=== PATIENT | female | born 1965 | race Caucasian/White ===

== ENCOUNTER 2017-01-03 22:47 | Emergency (ER) | payer OTHER ==
[~2017-01-03] VITALS: Ht 177.8 cm; Wt 89.7 kg
[2017-01-03] MEDS ORDERED: ATEN25TA PO (23:02)
[2017-01-03] MEDS ORDERED: AMLO2.5T2 PO (23:02)
[2017-01-03 23:40] LABS: BLOOD UREA NITROGEN 25 mg/dL (7-18)
[2017-01-04 00:19] VITALS: BP 187/92
== END 2017-01-04 00:36 | disposition home or self-care (01) ==
LOC: ED 01-04 00:10
DX: I10 Essential (primary) hypertension (principal); Z00.8 Encounter for other general examination; F15.10 Other stimulant abuse, uncomplicated; F11.10 Opioid abuse, uncomplicated
CPT/HCPCS: 36415; 80048; 82040; 85025; 93005; 99285

== ENCOUNTER 2017-08-24 18:30 | Inpatient (IN) | payer MEDICAID ==
[~2017-08-24] VITALS: Ht 177.8 cm; Wt 104.3 kg
[~2017-08-24 18:30] MED LIST: AMLO2.5T2 PO; ATEN25TA PO
[2017-08-24] MEDS ORDERED: ALBUTEROL/IPRATROPIUM 2.5MG/0.5MG, 3 ML NPPB ONE (20:00)
[2017-08-24] MEDS ORDERED: LORazepam 1MG TABLET PO ONE (20:00)
[2017-08-24] MEDS ORDERED: LORazepam 1MG TABLET ONE (20:13)
[2017-08-24 20:31] LABS: ALBUMIN 3.3 g/dL (3.4-5.0); ANION GAP 7 mmol/L (5-15); CHLORIDE 108 mmol/L (98-107); CREATININE 0.85 mg/dL (0.55-1.02)
[2017-08-24 21:40] LABS: BASOPHILS # (AUTO) 0.04 x10^3/uL (0-0.1); BASOPHILS % (AUTO) 0 % (0-1); EOSINOPHILS # (AUTO) 0.03 x10^3/uL (0-0.4); EOSINOPHILS % (AUTO) 0 % (1-7); LYMPHOCYTES # (AUTO) 2.54 x10^3/uL (1-3.4); LYMPHOCYTES % (AUTO) 17 % (22-44); MD NO; MEAN CORPUSCULAR HEMOGLOBIN 22.3 pg (27.0-34.8); MEAN CORPUSCULAR HGB CONC 31.5 g/dL (32.4-35.8); MEAN CORPUSCULAR VOLUME 70.8 fL (80-100); MEAN PLATELET VOLUME 9.9 fL (7.4-10.4); MONOCYTES # (AUTO) 1.02 x10^3/uL (0.2-0.8); MONOCYTES % (AUTO) 7 % (2-9); NEUTROPHILS # (AUTO) 11.66 x10^3/uL (1.8-6.8); NEUTROPHILS % (AUTO) 76 % (42-75); PLATELET COUNT 200 x10^3/uL (130-400)
[2017-08-24] MEDS ORDERED: ALBUTEROL/IPRATROPIUM 2.5MG/0.5MG, 3 ML ONE (22:53)
[2017-08-24] MEDS ORDERED: LABETALOL 5MG/ML, 20ML IVPush STA (23:56)
[2017-08-24] MEDS ORDERED: SODIUM CHLORIDE 0.9% 1,000 ML IV SCH (23:56)
[2017-08-24] MEDS ORDERED: LABETALOL 5MG/ML, 20ML ONE (23:57)
[2017-08-25] MEDS ORDERED: ONDANSETRON 2MG/ML, 2ML IVPush PRN
[2017-08-25] MEDS ORDERED: GUAIFENESIN/DM 200-20MG, 10ML UDC PO PRN
[2017-08-25] MEDS ORDERED: LABETALOL 5MG/ML, 20ML IVPush PRN
[2017-08-25] MEDS ORDERED: ACETAMINOPHEN 325 MG TABLET PO PRN
[2017-08-25] MEDS ORDERED: hydrALAzine 20 MG/ML, 1ML IVPush PRN
[2017-08-25 00:32] LABS: TROPONIN I 0.052 ng/mL (0.000-0.045)
[2017-08-25] MEDS ORDERED: OMNIPAQUE 350 MG/ML, 100ML BOTTLE ONE (01:46)
[2017-08-25 02:52] VITALS: BP 191/100
[2017-08-25 04:37] LABS: BASOPHILS # (AUTO) 0.04 x10^3/uL (0-0.1); BASOPHILS % (AUTO) 0 % (0-1); EOSINOPHILS # (AUTO) 0.11 x10^3/uL (0-0.4); EOSINOPHILS % (AUTO) 1 % (1-7); LYMPHOCYTES # (AUTO) 2.64 x10^3/uL (1-3.4); LYMPHOCYTES % (AUTO) 21 % (22-44); MD NO; MEAN CORPUSCULAR HEMOGLOBIN 22.6 pg (27.0-34.8); MEAN CORPUSCULAR HGB CONC 31.8 g/dL (32.4-35.8); MONOCYTES # (AUTO) 0.59 x10^3/uL (0.2-0.8); MONOCYTES % (AUTO) 5 % (2-9); NEUTROPHILS # (AUTO) 8.95 x10^3/uL (1.8-6.8); NEUTROPHILS % (AUTO) 73 % (42-75); PLATELET COUNT 201 x10^3/uL (130-400); RED BLOOD COUNT 5.04 x10^6/uL (3.82-5.3)
[2017-08-25 04:50] LABS: TROPONIN I 0.069 ng/mL (0.000-0.045)
[2017-08-25 04:56] LABS: ALBUMIN 3.1 g/dL (3.4-5.0); ANION GAP 7 mmol/L (5-15); CALCIUM 8.6 mg/dL (8.5-10.1); CHLORIDE 109 mmol/L (98-107)
[2017-08-25 05:02] LABS: ALANINE AMINOTRANSFERASE 26 U/L (12-78); ALKALINE PHOSPHATASE 96 U/L (45-117); BILIRUBIN,TOTAL 0.3 mg/dL (0.2-1.0); CHOL/HDL RATIO 2.6; CHOLESTEROL, TOTAL 134 mg/dL (140-239); CREATININE 0.77 mg/dL (0.55-1.02); HDL CHOL % 38 % (28-40); HDL CHOLESTEROL (DIRECT) 51 mg/dL (40-60); LDL CHOLESTEROL,CALCULATED 65 mg/dL (54-169); LDL/HDL RATIO 1.3 (0.5-3.0); TRIGLYCERIDES 89 mg/dL (50-200); VLDL CHOLESTEROL 18 mg/dL (0-25)
[2017-08-25 05:54] VITALS: BP 157/80
[2017-08-25] MEDS ORDERED: ASPIRIN 325 MG TABLET EC PO SCH (06:00)
[2017-08-25] MEDS ORDERED: LORazepam 2 MG/ML, 1ML IVPush PRN (09:30)
[2017-08-25] MEDS: ATENOLOL 25 MG TABLET PO SCH (10:00)
[2017-08-25] MEDS: AMLODIPINE 5 MG TABLET PO SCH (10:00)
[2017-08-25] MEDS ORDERED: ALBUTEROL/IPRATROPIUM 2.5MG/0.5MG, 3 ML ONE (10:35)
[2017-08-25] MEDS: ALBUTEROL/IPRATROPIUM 2.5MG/0.5MG, 3 ML NPPB SCH ×3 (10:57→20:06)
[2017-08-25 19:25] LABS: AMPHETAMINE SCREEN, URINE Positive (Negative); BARBITURATE SCREEN, URINE Negative (Negative); BENZODIAZEPINE SCREEN, URINE Negative (Negative); CANNABINOID SCREEN, URINE Positive (Negative); COCAINE SCREEN, URINE Negative (Negative); METHADONE SCREEN, URINE Negative (Negative); OPIATE SCREEN, URINE Negative (Negative)
[2017-08-25] MEDS: ENOXAPARIN 40 MG/0.4 ML SQ SCH (20:05)
[2017-08-26 04:01] VITALS: BP 158/72
[2017-08-26 04:38] LABS: BASOPHILS # (AUTO) 0.05 x10^3/uL (0-0.1); BASOPHILS % (AUTO) 0 % (0-1); EOSINOPHILS # (AUTO) 0.15 x10^3/uL (0-0.4); EOSINOPHILS % (AUTO) 1 % (1-7); LYMPHOCYTES # (AUTO) 2.36 x10^3/uL (1-3.4); LYMPHOCYTES % (AUTO) 19 % (22-44); MD NO; MEAN CORPUSCULAR HGB CONC 30.8 g/dL (32.4-35.8); MEAN CORPUSCULAR VOLUME 71.3 fL (80-100); MEAN PLATELET VOLUME 10.4 fL (7.4-10.4); MONOCYTES # (AUTO) 0.59 x10^3/uL (0.2-0.8); MONOCYTES % (AUTO) 5 % (2-9); NEUTROPHILS # (AUTO) 9.47 x10^3/uL (1.8-6.8); NEUTROPHILS % (AUTO) 75 % (42-75); PLATELET COUNT 195 x10^3/uL (130-400); RED BLOOD COUNT 5.23 x10^6/uL (3.82-5.3); RED CELL DISTRIBUTION WIDTH 18.3 % (9.6-15.2)
[2017-08-26 04:50] LABS: ALBUMIN 3.1 g/dL (3.4-5.0); ANION GAP 6 mmol/L (5-15); CALCIUM 8.5 mg/dL (8.5-10.1); CHLORIDE 107 mmol/L (98-107); CREATININE 0.76 mg/dL (0.55-1.02)
[2017-08-26 04:53] LABS: TROPONIN I 0.046 ng/mL (0.000-0.045)
[2017-08-26 04:54] LABS: ALANINE AMINOTRANSFERASE 23 U/L (12-78); ALKALINE PHOSPHATASE 90 U/L (45-117); BILIRUBIN,TOTAL 0.3 mg/dL (0.2-1.0); TOTAL PROTEIN 6.9 g/dL (6.4-8.2)
[2017-08-26] MEDS ORDERED: ASPIRIN 325 MG TABLET EC PO SCH (06:00)
[2017-08-26] MEDS: ASPIRIN 81 MG TABLET EC PO SCH (06:29)
[2017-08-26] MEDS: ALBUTEROL/IPRATROPIUM 2.5MG/0.5MG, 3 ML NPPB SCH ×4 (07:00→20:20)
[2017-08-26] MEDS: AMLODIPINE 5 MG TABLET PO SCH (08:08)
[2017-08-26] MEDS: ATENOLOL 25 MG TABLET PO SCH (08:08)
[2017-08-26] MEDS ORDERED: LABETALOL 5MG/ML, 20ML IVPush PRN (10:00)
[2017-08-26] MEDS ORDERED: hydrALAzine 20 MG/ML, 1ML IVPush PRN ×2 (10:00→16:00)
[2017-08-26] MEDS: LISINOPRIL 10 MG TABLET PO SCH ×2 (10:34→20:03)
[2017-08-26] MEDS: DILTIAZEM 120 MG CAP.ER.12H PO SCH ×2 (10:34→20:04)
[2017-08-26] MEDS ORDERED: LORazepam 2 MG/ML, 1ML IVPush PRN (16:00)
[2017-08-26 17:16] VITALS: BP 170/80
[2017-08-26 19:58] VITALS: BP 150/80
[2017-08-26 20:00] VITALS: BP 152/75
[2017-08-26] MEDS: ENOXAPARIN 40 MG/0.4 ML SQ SCH (20:03)
[2017-08-27 01:26] VITALS: BP 155/77
[2017-08-27] MEDS: ASPIRIN 81 MG TABLET EC PO SCH (06:32)
[2017-08-27] MEDS: ALBUTEROL/IPRATROPIUM 2.5MG/0.5MG, 3 ML NPPB SCH (06:51)
[2017-08-27] MEDS ORDERED: ALBUTEROL/IPRATROPIUM 2.5MG/0.5MG, 3 ML NPPB PRN (07:00)
[2017-08-27 07:37] VITALS: BP 158/67
[2017-08-27] MEDS: LISINOPRIL 10 MG TABLET PO SCH (09:05)
[2017-08-27] MEDS: DILTIAZEM 120 MG CAP.ER.12H PO SCH (09:05)
[2017-08-27 15:28] VITALS: BP 175/77
[2017-08-27] MEDS ORDERED: LISINOPRIL 20 MG TABLET PO SCH (21:00)
[2017-08-27] MEDS ORDERED: DILTIAZEM 120 MG CAP.ER.12H PO SCH (21:00)
== END 2017-08-27 17:31 | disposition left against medical advice (07) | DRG 64 ==
LOC: ED 22:07 → OBSVTOIN 23:09 → EDIP 23:09 → CCU 08-25 01:52 → 4EST 08-26 17:20
PROVIDERS: ADMIT Hospitalist; ATTEND Hospitalist
DX: I63.9 Cerebral infarction, unspecified (principal); I71.01 Dissection of thoracic aorta; J44.1 Chronic obstructive pulmonary disease with (acute) exacerbation; D50.9 Iron deficiency anemia, unspecified; D72.829 Elevated white blood cell count, unspecified; F15.90 Other stimulant use, unspecified, uncomplicated; F17.210 Nicotine dependence, cigarettes, uncomplicated; F41.0 Panic disorder [episodic paroxysmal anxiety]; Z53.21 Procedure and treatment not carried out due to patient leaving prior to being seen by health care provider; G24.01 Drug induced subacute dyskinesia; R47.81 Slurred speech; I10 Essential (primary) hypertension; Z91.19 Patient's noncompliance with other medical treatment and regimen; R00.0 Tachycardia, unspecified; R47.1 Dysarthria and anarthria
CPT/HCPCS: 36415; 70450; 70496; 70498; 70551; 80048; 80053; 80061; 80307; 82040; 83735; 84100; 84484; 85025; 87081; 93005; 93306; 94640; 96374; J1650; J7620; Q9967; 92523-GN; J2060; J7030; J7050

== ENCOUNTER 2018-09-11 02:07 | Inpatient (IN) | payer MEDICAID ==
[~2018-09-11] VITALS: Ht 177.8 cm; Wt 108.8 kg
[2018-09-11] MEDS ORDERED: AMPICILLIN/SULBACTAM 3 GM in SODIUM CHLORIDE 0.9% 100 ML IV ONE (03:00)
[2018-09-11] MEDS ORDERED: KETOROLAC 30 MG/1 ML IVPush ONE (03:00)
[2018-09-11] MEDS ORDERED: VANCOMYCIN PER PHARMACY MC PRN ×2 (03:00→05:00)
[2018-09-11] MEDS ORDERED: VANCOMYCIN 2,000 MG in SODIUM CHLORIDE 0.9% 500 ML IV ONE (03:00)
[2018-09-11] MEDS ORDERED: SODIUM CHLORIDE 0.9% 1,000ML IVBOLUS ONE ×2 (03:00)
[2018-09-11 03:41] LABS: ALANINE AMINOTRANSFERASE 49 U/L (12-78); ALBUMIN 3.3 g/dL (3.4-5.0); ANION GAP 6 mmol/L (5-15); CALCIUM 8.8 mg/dL (8.5-10.1); CHLORIDE 102 mmol/L (98-107); CREATININE 1.12 mg/dL (0.55-1.02)
[2018-09-11 03:44] LABS: ALKALINE PHOSPHATASE 106 U/L (45-117); BILIRUBIN,TOTAL 0.5 mg/dL (0.2-1.0); TOTAL PROTEIN 7.8 g/dL (6.4-8.2)
--- NOTE | 2018-09-11 03:56 | NUR ---
PT REPORTS SHE AWOKE THIS AM WITH RED SWOLLEN AND PAINFUL LEFT LEG. per triage note iv was started by using us ( tania borjas ) iv abx with 2 liters of saline was given per sepsis
[2018-09-11] MEDS ORDERED: LISI-167 PO (04:05)
[2018-09-11 04:13] LABS: BASOPHILS % (AUTO) 0 % (0-1); EOSINOPHILS % (AUTO) 0 % (1-7); LYMPHOCYTES # (AUTO) 1.13 x10^3/uL (1-3.4); LYMPHOCYTES % (AUTO) 8 % (22-44); MD NO; MEAN CORPUSCULAR HGB CONC 33.3 g/dL (32.4-35.8); MEAN CORPUSCULAR VOLUME 84.3 fL (80-100); MEAN PLATELET VOLUME 11.3 fL (7.4-10.4); MONOCYTES # (AUTO) 0.44 x10^3/uL (0.2-0.8); MONOCYTES % (AUTO) 3 % (2-9); NEUTROPHILS # (AUTO) 12.94 x10^3/uL (1.8-6.8); NEUTROPHILS % (AUTO) 89 % (42-75); PLATELET COUNT 153 x10^3/uL (130-400); RED BLOOD COUNT 4.98 x10^6/uL (3.82-5.3); RED CELL DISTRIBUTION WIDTH 13.8 % (9.6-15.2)
[2018-09-11] MEDS ORDERED: MORPHINE SULFATE 4 MG/ML, 1ML IVPush PRN (04:30)
[2018-09-11] MEDS ORDERED: SODIUM CHLORIDE 0.9% 1,000 ML IV SCH (04:53)
[2018-09-11] MEDS ORDERED: ONDANSETRON ODT 4 MG PO PRN (05:00)
[2018-09-11] MEDS ORDERED: hydrALAzine 20 MG/ML, 1ML IVPush PRN (05:00)
[2018-09-11] MEDS ORDERED: morphine SULFATE 10 MG/ML, 1ML IVPush PRN (05:00)
[2018-09-11] MEDS ORDERED: PROMETHAZINE 25 MG/ML, 1ML IM PRN (05:00)
[2018-09-11] MEDS ORDERED: KETOROLAC 30 MG/1 ML IV PRN (05:00)
[2018-09-11] MEDS ORDERED: ONDANSETRON 2MG/ML, 2ML IVPush PRN (05:00)
[2018-09-11] MEDS ORDERED: OXYcodone IR 5MG TABLET PO PRN (05:00)
[2018-09-11] MEDS ORDERED: ACETAMINOPHEN 325 MG TABLET PO PRN (05:00)
[2018-09-11] MEDS ORDERED: POLYETHYLENE GLYCOL 17 GM PACKET PO PRN (05:00)
[2018-09-11] MEDS ORDERED: BISACODYL 10 MG SUPP PR PRN (05:00)
[2018-09-11 05:29] LABS: FREE T4 (FREE THYROXINE) 1.22 ng/dL (0.76-1.46); HEMOGLOBIN A1C 5.6 % (4.2-6.3)
[2018-09-11] MEDS ORDERED: PHARMACOKINETIC MONITORING MC PRN (05:30)
[2018-09-11 05:34] LABS: C-REACTIVE PROTEIN, QUANT > 19.00 mg/dL (0.02-0.49)
--- NOTE | 2018-09-11 05:46 | NUR ---
PT RESTING ON GURNEY, NO NEEDS EXPRESSED AT THIS TIME.
[2018-09-11] MEDS ORDERED: KETOROLAC 30 MG/1 ML ONE (05:49)
[2018-09-11] MEDS ORDERED: NICOTINE 7 MG/24 HR PATCH.TD24 ONE (05:49)
[2018-09-11] MEDS ORDERED: HEPARIN 5,000 UNITS/ML, 1ML ONE (05:49)
[2018-09-11] MEDS: HEPARIN 5,000 UNITS/ML, 1ML SQ SCH ×3 (05:56→22:03)
[2018-09-11] MEDS: NICOTINE 7 MG/24 HR PATCH.TD24 TD SCH (05:57)
--- NOTE | 2018-09-11 07:05 | NUR ---
I AM ASSUMING CARE OF THIS PT FROM HARDIK (AINSLEY) AT THIS TIME. SBAR REPORT WAS EXCHANGED AT THE BEDSIDE.
[2018-09-11] MEDS ORDERED: CARVEDILOL 3.125 MG TABLET ONE (07:45)
[2018-09-11] MEDS ORDERED: ASPIRIN 81 MG TABLET CHEW ONE (07:46)
[2018-09-11] MEDS: ASPIRIN 81 MG TABLET EC PO SCH (07:47)
[2018-09-11] MEDS: CARVEDILOL 6.25 MG TABLET PO SCH ×2 (07:48→18:29)
--- NOTE | 2018-09-11 08:20 | NUR ---
PT ASKED TO USE RESTROOM. WHILE DISCONNECTING FROM MONITORS, SHE WAS INCONTINENT OF URINE IN BED. SHE STATED THAT SHE COULDN'T HOLD IT ANY LONGER. CLEAN LINENS AND HYGEINE PROVIDED. UNABLE TO OBTAIN URINE FOR ANALYSIS AT THIS TIME. I WILL CONTINUE TO MONITOR AND TREAT ORDERED, WELL PRN. MEALTRAY PROVIDED AND APPRECIATED.
--- NOTE | 2018-09-11 08:45 | NUR ---
HOSPITAL BED REQUESTED FOR COMFORT WHILE AWAITING A ROOM ASSIGNMENT FOR ADMISSION.
[2018-09-11] MEDS ORDERED: SENNA/DOCUSATE TABLET ONE (08:51)
[2018-09-11] MEDS ORDERED: LISINOPRIL 10 MG TABLET ONE (08:51)
[2018-09-11] MEDS ORDERED: OXYcodone IR 5MG TABLET ONE (08:52)
[2018-09-11] MEDS: OXYcodone IR 5MG TABLET PO PRN (08:54)
[2018-09-11] MEDS: SENNA/DOCUSATE TABLET PO SCH (08:55)
[2018-09-11] MEDS: LISINOPRIL 10 MG TABLET PO SCH (08:55)
[2018-09-11 09:12] LABS: HCT (SEDRATE) 41.9 % (34.6-47.8)
[2018-09-11] MEDS: AMPICILLIN/SULBACTAM 3 GM in SODIUM CHLORIDE 0.9% 100 ML IV SCH ×3 (10:40→22:03)
--- NOTE | 2018-09-11 10:51 | NUR ---
hospital bed provided for comfort. no ua at this time, but pt is aware of the necesity of such.
--- NOTE | 2018-09-11 12:51 | NUR ---
pt sleeping sonorously on a hospital bed. no acute changes noted at this time. vs are stable, and wdl. in the meantime i will continue to monitor and treat as ordered, as well as prn while awaiting a room assignment for admission.
--- NOTE | 2018-09-11 13:58 | NUR ---
pt still sleeping sonorously on a hospital bed. no acute changes noted at this time. vs are stable, and wdl. in the meantime i will continue to monitor and treat as ordered, as well as prn while awaiting a room assignment for admission.
[2018-09-11 15:00] VITALS: BP 127/57
--- NOTE | 2018-09-11 15:06 | NUR ---
VERBAL SBAR REPORT WAS EXCHANGED Diana CASPER (AINSLEY) ON THE FLOOR FOR ADMISSION. WE WILL BEGIN TO PREPARE FOR TRANSPORT AT THIS TIME.
[2018-09-11 19:50] VITALS: BP 109/52
[2018-09-11] MEDS ORDERED: ATORVASTATIN 40 MG TABLET PO SCH (21:00)
[2018-09-11] MEDS ORDERED: VANCOMYCIN 2,000 MG in SODIUM CHLORIDE 0.9% 500 ML IV SCH (23:00)
[2018-09-12 01:56] VITALS: BP 145/71
[2018-09-12] MEDS: AMPICILLIN/SULBACTAM 3 GM in SODIUM CHLORIDE 0.9% 100 ML IV SCH ×2 (04:18→09:48)
[2018-09-12] MEDS: HEPARIN 5,000 UNITS/ML, 1ML SQ SCH (04:18)
[2018-09-12] MEDS: NICOTINE 7 MG/24 HR PATCH.TD24 TD SCH (04:19)
[2018-09-12] MEDS: CARVEDILOL 6.25 MG TABLET PO SCH (05:34)
[2018-09-12] MEDS: ASPIRIN 81 MG TABLET EC PO SCH (05:34)
[2018-09-12 05:37] LABS: MEAN CORPUSCULAR HEMOGLOBIN 28.1 pg (27.0-34.8); MEAN CORPUSCULAR VOLUME 85.2 fL (80-100); MEAN PLATELET VOLUME 10.5 fL (7.4-10.4); PLATELET COUNT 150 x10^3/uL (130-400); RED BLOOD COUNT 3.93 x10^6/uL (3.82-5.3); RED CELL DISTRIBUTION WIDTH 14.5 % (9.6-15.2)
[2018-09-12 05:38] LABS: ALBUMIN 2.4 g/dL (3.4-5.0); ANION GAP 6 mmol/L (5-15); CHLORIDE 109 mmol/L (98-107)
[2018-09-12 05:42] LABS: ALANINE AMINOTRANSFERASE 31 U/L (12-78); ALKALINE PHOSPHATASE 74 U/L (45-117); BILIRUBIN,TOTAL 0.3 mg/dL (0.2-1.0); CHOL/HDL RATIO 5.6; CHOLESTEROL, TOTAL 106 mg/dL (140-239); CREATININE 0.86 mg/dL (0.55-1.02); HDL CHOL % 18 % (28-40); HDL CHOLESTEROL (DIRECT) 19 mg/dL (40-60); LDL CHOLESTEROL,CALCULATED 54 mg/dL (54-169); LDL/HDL RATIO 2.8 (0.5-3.0); TRIGLYCERIDES 167 mg/dL (50-200); VLDL CHOLESTEROL 33 mg/dL (0-25)
[2018-09-12 06:05] LABS: BASOPHILS # (AUTO) 0.01 x10^3/uL (0-0.1); BASOPHILS % (AUTO) 0 % (0-1); EOSINOPHILS # (AUTO) 0.03 x10^3/uL (0-0.4); EOSINOPHILS % (AUTO) 1 % (1-7); LYMPHOCYTES # (AUTO) 1.15 x10^3/uL (1-3.4); LYMPHOCYTES % (AUTO) 18 % (22-44); MD SCAN; MONOCYTES % (AUTO) 8 % (2-9); NEUTROPHILS # (AUTO) 4.84 x10^3/uL (1.8-6.8); NEUTROPHILS % (AUTO) 74 % (42-75)
[2018-09-12 06:49] VITALS: BP 112/50
[2018-09-12] MEDS ORDERED: ACETAMINOPHEN 325 MG TABLET PO PRN (08:00)
[2018-09-12] MEDS: SENNA/DOCUSATE TABLET PO SCH (09:49)
[2018-09-12] MEDS: LISINOPRIL 10 MG TABLET PO SCH (09:49)
[2018-09-12] MEDS ORDERED: KETOROLAC 30 MG/1 ML IV PRN (11:00)
[2018-09-12] MEDS: OXYcodone IR 5MG TABLET PO PRN (12:23)
[2018-09-12 13:01] VITALS: BP 144/66
== END 2018-09-12 13:33 | disposition left against medical advice (07) | DRG 871 ==
LOC: ED 04:20 → EDIP 04:21 → ED 06:55 → 4NOR 15:54
PROVIDERS: ADMIT Internal Medicine; ATTEND Internal Medicine
DX: A41.9 Sepsis, unspecified organism (principal); N17.0 Acute kidney failure with tubular necrosis; E87.1 Hypo-osmolality and hyponatremia; L03.116 Cellulitis of left lower limb; E44.0 Moderate protein-calorie malnutrition; E66.9 Obesity, unspecified; F15.10 Other stimulant abuse, uncomplicated; I10 Essential (primary) hypertension; I49.3 Ventricular premature depolarization; I71.4 Abdominal aortic aneurysm, without rupture; R65.20 Severe sepsis without septic shock; F17.210 Nicotine dependence, cigarettes, uncomplicated; Z91.14 Patient's other noncompliance with medication regimen; Z53.21 Procedure and treatment not carried out due to patient leaving prior to being seen by health care provider; Z86.73 Personal history of transient ischemic attack (TIA), and cerebral infarction without residual deficits; Z71.51 Drug abuse counseling and surveillance of drug abuser; Z68.34 Body mass index [BMI] 34.0-34.9, adult
CPT/HCPCS: 36415; 80053; 80061; 83036; 83605; 83735; 84145; 84439; 85025; 85651; 86140; 87040; 90656; 93005; G0378; J0295; J1644; J1885; J3370; J7030; J7040

== ENCOUNTER 2018-09-13 16:41 | Observation (INO) | payer MEDICAID ==
[~2018-09-13] VITALS: Ht 177.8 cm; Wt 101.3 kg
[~2018-09-13 16:41] MED LIST changes: +LISI-167 PO
--- NOTE | 2018-09-13 17:00 | NUR ---
PRESENTS WITH CONTINUED RLE CELLULITIS, +4 EDEMA/QUITE REDDNED/HOT TO TOUCH, AFEBRILE, VSS. HAS HARLAN TO [facility]/THIS FACILITY MULTIPLE TIMES IN THE LAST WEEK-LEAFT AMA FROM EACH FACILITY. PALPABLE PULSE
[2018-09-13 17:45] LABS: ANION GAP 7 mmol/L (5-15); CALCIUM 8.5 mg/dL (8.5-10.1); CHLORIDE 109 mmol/L (98-107); CREATININE 0.76 mg/dL (0.55-1.02)
[2018-09-13] MEDS ORDERED: AMPICILLIN/SULBACTAM 3 GM in SODIUM CHLORIDE 0.9% 100 ML IV ONE (18:00)
[2018-09-13] MEDS ORDERED: VANCOMYCIN 2,000 MG in SODIUM CHLORIDE 0.9% 500 ML IV ONE (18:00)
[2018-09-13] MEDS ORDERED: SODIUM CHLORIDE FLUSH 10ML SYR IVF ONE (18:00)
[2018-09-13] MEDS ORDERED: VANCOMYCIN PER PHARMACY MC ONE (18:00)
--- NOTE | 2018-09-13 18:06 | NUR ---
Architectural Technician & lab at bedside attempting to obtain blood with patient from [phone]. Architectural Technician able to obtain right forearm piv #20 with US
--- NOTE | 2018-09-13 18:20 | NUR ---
UNASYN STARTED AFTER BLOOD CULTURES OBTAINED X 2
[2018-09-13 18:30] LABS: MEAN CORPUSCULAR HEMOGLOBIN 28.1 pg (27.0-34.8); MEAN CORPUSCULAR HGB CONC 33.3 g/dL (32.4-35.8); MEAN CORPUSCULAR VOLUME 84.6 fL (80-100); MEAN PLATELET VOLUME 11.2 fL (7.4-10.4); PLATELET COUNT 219 x10^3/uL (130-400); RED BLOOD COUNT 4.64 x10^6/uL (3.82-5.3); RED CELL DISTRIBUTION WIDTH 14.4 % (9.6-15.2)
--- NOTE | 2018-09-13 18:49 | NUR ---
RESTING COMFORTABLY IN BED, CALL PRETTY IN HAND/SIDE RAILS UP. REPORTS CONTINUED MILD PAIN TO RLE (08/26) PROVIDER AWARE. VSS. UNASYN DONE, VANC STARTED. UPDATED ON ESTIMATED POC (ENCOURAGED TO STAY FOR FULL TC THIS ADMISSION). gIVEN ADDITIONAL PILLOW AND BLANKET SHE REMAINS AFEBRILE
[2018-09-13 18:55] LABS: BASOPHILS # (AUTO) 0.01 x10^3/uL (0-0.1); BASOPHILS % (AUTO) 0 % (0-1); EOSINOPHILS # (AUTO) 0.04 x10^3/uL (0-0.4); EOSINOPHILS % (AUTO) 1 % (1-7); LYMPHOCYTES # (AUTO) 1.28 x10^3/uL (1-3.4); LYMPHOCYTES % (AUTO) 17 % (22-44); MD SCAN; MONOCYTES # (AUTO) 0.43 x10^3/uL (0.2-0.8); MONOCYTES % (AUTO) 6 % (2-9); NEUTROPHILS # (AUTO) 5.87 x10^3/uL (1.8-6.8); NEUTROPHILS % (AUTO) 77 % (42-75)
[2018-09-13 20:01] VITALS: BP 155/81
[2018-09-13] MEDS ORDERED: SODIUM CHLORIDE 0.9% 1,000 ML IV SCH (20:26)
[2018-09-13] MEDS ORDERED: ACETAMINOPHEN 325 MG TABLET PO PRN (20:30)
[2018-09-13] MEDS ORDERED: KETOROLAC 30 MG/1 ML IV PRN (20:30)
[2018-09-13] MEDS ORDERED: VANCOMYCIN PER PHARMACY MC PRN (20:30)
[2018-09-13] MEDS ORDERED: POLYETHYLENE GLYCOL 17 GM PACKET PO PRN (20:30)
[2018-09-13] MEDS ORDERED: NICOTINE 7 MG/24 HR PATCH.TD24 TD SCH (20:30)
[2018-09-13] MEDS ORDERED: ENOXAPARIN 40 MG/0.4 ML SQ SCH (20:30)
[2018-09-13] MEDS ORDERED: ENALAPRILAT 1.25 MG/ML, 2ML IVPush PRN (20:30)
[2018-09-13] MEDS ORDERED: AMPICILLIN/SULBACTAM 3 GM in SODIUM CHLORIDE 0.9% 100 ML IV SCH (20:30)
[2018-09-13] MEDS ORDERED: ONDANSETRON 2MG/ML, 2ML IVPush PRN (20:30)
[2018-09-13] MEDS ORDERED: PHARMACOKINETIC CONSULTATION MC ONE (21:00)
[2018-09-13] MEDS ORDERED: PHARMACOKINETIC MONITORING MC PRN (21:00)
[2018-09-14] MEDS ORDERED: AMPICILLIN/SULBACTAM 3 GM in SODIUM CHLORIDE 0.9% 100 ML IV SCH (00:15)
[2018-09-14] MEDS ORDERED: SENNA/DOCUSATE TABLET PO SCH (09:00)
[2018-09-14] MEDS ORDERED: VANCOMYCIN 2,000 MG in SODIUM CHLORIDE 0.9% 500 ML IV SCH (18:00)
== END 2018-09-13 21:27 | disposition left against medical advice (07) ==
LOC: ED 18:28 → INTOOBSV 18:37 → EDIP 18:37 → 3NE 19:41
PROVIDERS: ADMIT Family Medicine; ATTEND Family Medicine
DX: L03.116 Cellulitis of left lower limb (principal); I10 Essential (primary) hypertension; F15.90 Other stimulant use, unspecified, uncomplicated; F17.210 Nicotine dependence, cigarettes, uncomplicated; E44.0 Moderate protein-calorie malnutrition; E66.9 Obesity, unspecified; Z53.21 Procedure and treatment not carried out due to patient leaving prior to being seen by health care provider; Z91.14 Patient's other noncompliance with medication regimen; Z68.32 Body mass index [BMI] 32.0-32.9, adult
CPT/HCPCS: 36415; 80048; 83605; 84145; 85025; 87040; 96365; 96366; 96367; 99284; G0378; J0295; J3370; J7040; 96375; 99285

== ENCOUNTER 2020-02-29 09:35 | Emergency (ER) | payer MEDICAID ==
[~2020-02-29] VITALS: Ht 177.8 cm; Wt 107.0 kg
--- NOTE | 2020-02-29 09:51 | NUR ---
TASK RN: CONTACT WITH PT, 54 YR OLD FEMALE HERE WITH C/O "I'M BLEEDING ALOT, LIKE ALOT ALOT. IT CLOTTING LIKE BRIGHT RED BLOOD CLOTS. I GET MY PERIOD EVERY 7 MONTHS AND BLEED ALOT, BUT THIS IS ALOT, ALOT. THIS IS TOO MUCH, I'M SLEEPING ALOT, I'M TIRED"
[2020-02-29] MEDS ORDERED: LOVA20TA2 PO (09:59)
[2020-02-29] MEDS ORDERED: SERT100T32 PO (09:59)
[2020-02-29] MEDS ORDERED: AMLO-150 PO (09:59)
[2020-02-29] MEDS ORDERED: ASPI81TA45 PO (10:01)
[2020-02-29] MEDS ORDERED: ALBU18HF INH (10:01)
[2020-02-29] MEDS ORDERED: SODIUM CHLORIDE 0.9% 1,000ML IVBOLUS ONE (10:30)
[2020-02-29] MEDS ORDERED: SODIUM CHLORIDE FLUSH 10ML SYR IVF ONE (10:30)
--- NOTE | 2020-02-29 10:33 | NUR ---
PT LAYING ON GURNEY, NO ACUTE DISTRESS NOTED. PT REQUESTING SOCKS. PROVIDED TO PT. PT FRIEND AT BEDSIDE. AWAITING ORDERES.
--- NOTE | 2020-02-29 10:52 | NUR ---
RECEIVED REPORT FROM NEETA SCHMITZ. ASSUMING CARE AT THIS TIME.
--- NOTE | 2020-02-29 10:52 | NUR ---
REPORT TO SHELBI SCHMITZ
[2020-02-29 11:05] LABS: BASOPHILS # (AUTO) 0.03 x10^3/uL (0-0.1); BASOPHILS % (AUTO) 0 % (0-1); EOSINOPHILS # (AUTO) 0.17 x10^3/uL (0-0.4); EOSINOPHILS % (AUTO) 2 % (1-7); LYMPHOCYTES # (AUTO) 1.72 x10^3/uL (1-3.4); LYMPHOCYTES % (AUTO) 20 % (22-44); MD NO; MEAN CORPUSCULAR HEMOGLOBIN 29.3 pg (27.0-34.8); MEAN CORPUSCULAR HGB CONC 32.6 g/dL (32.4-35.8); MEAN CORPUSCULAR VOLUME 89.8 fL (80-100); MEAN PLATELET VOLUME 9.6 fL (7.4-10.4); MONOCYTES # (AUTO) 0.38 x10^3/uL (0.2-0.8); MONOCYTES % (AUTO) 5 % (2-9); NEUTROPHILS % (AUTO) 73 % (42-75); PLATELET COUNT 249 x10^3/uL (130-400); RED BLOOD COUNT 4.21 x10^6/uL (3.82-5.3); RED CELL DISTRIBUTION WIDTH 14.8 % (9.6-15.2)
[2020-02-29 11:14] LABS: ALBUMIN 3.3 g/dL (3.4-5.0); ANION GAP 4 mmol/L (5-15); CALCIUM 8.9 mg/dL (8.5-10.1); CHLORIDE 108 mmol/L (98-107); CREATININE 0.99 mg/dL (0.55-1.02)
[2020-02-29 12:04] LABS: CLUE CELLS NONE SEEN (NONE SEEN); WET PREP WBCS FEW (FEW)
[2020-02-29 12:48] VITALS: BP 123/58
== END 2020-02-29 12:50 | disposition home or self-care (01) ==
LOC: ED 10:16
DX: N92.1 Excessive and frequent menstruation with irregular cycle (principal); N93.8 Other specified abnormal uterine and vaginal bleeding; I10 Essential (primary) hypertension; F17.290 Nicotine dependence, other tobacco product, uncomplicated
CPT/HCPCS: 36415; 80048; 82040; 84703; 85025; 86850; 86900; 87210; 87491; 87591; 87808; 96360; 99283; J7030